=== PATIENT | female | born 1980 | race Caucasian/White ===

== ENCOUNTER 2017-04-16 23:24 | Emergency (ER) | payer OTHER ==
[~2017-04-16] VITALS: Ht 177.8 cm; Wt 95.3 kg
[~2017-04-16 23:24] MED LIST: CORTISPORIN OTI10 M2 OTIC; PERCOCET 5-3251 EACH PO
[2017-04-16] MEDS ORDERED: NORCO 5-325 TA1 EACH PO (23:55)
[2017-04-17 00:54] VITALS: BP 127/77
== END 2017-04-17 00:55 | disposition home or self-care (01) ==
LOC: ER 23:24
DX: S93.402A Sprain of unspecified ligament of left ankle, initial encounter (principal); S61.502A Unspecified open wound of left wrist, initial encounter; W01.0XXA Fall on same level from slipping, tripping and stumbling without subsequent striking against object, initial encounter; Y93.01 Activity, walking, marching and hiking; Y92.89 Other specified places as the place of occurrence of the external cause; Y99.8 Other external cause status

== ENCOUNTER 2018-01-20 13:03 | Emergency (ER) | payer OTHER ==
[~2018-01-20] VITALS: Ht 180.3 cm; Wt 86.2 kg
[~2018-01-20 13:03] MED LIST changes: +NORCO 5-325 TA1 EACH PO
== END 2018-01-20 14:12 | disposition home or self-care (01) ==
LOC: ER 13:03
DX: R04.0 Epistaxis (principal); F10.99 Alcohol use, unspecified with unspecified alcohol-induced disorder